=== PATIENT | male | born 1995 | race Caucasian/White ===

== ENCOUNTER 2016-11-14 17:17 | Emergency (ER) | payer OTHER ==
[2016-11-14 17:24] VITALS: BP 100/52; PULSE 83; TEMP 98; BMI 36.0
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
== END 2016-11-14 18:22 | disposition home or self-care (01) ==
LOC: JERFT 17:17
PROC: 0HQGXZZ Repair Left Hand Skin, External Approach (ICD-10-PCS; principal; 2016-11-14)
DX: S61.317A Laceration without foreign body of left little finger with damage to nail, initial encounter (principal); S61.215A Laceration without foreign body of left ring finger without damage to nail, initial encounter; W29.8XXA Contact with other powered hand tools and household machinery, initial encounter; Y93.89 Activity, other specified; Y92.89 Other specified places as the place of occurrence of the external cause
CPT/HCPCS: 12002-25; 73130-TC-LT; 99282-25